=== PATIENT | female | born 1950 | race Caucasian/White ===

== ENCOUNTER 2020-04-20 00:43 | Outpatient (CLI) | payer MEDICARE, SELFPAY ==
[2020-04-20 19:34] LABS: SARS-CoV-2 RNA PCR Negative
== END 2020-04-20 00:44 | disposition home or self-care (01) ==
LOC: ANHCOVIDDT 00:43
PROVIDERS: PCP Internal Medicine; Visit Provider Internal Medicine Gastroenterology
DX: Z01.812 Encounter for preprocedural laboratory examination (principal); Z20.828 Contact with and (suspected) exposure to other viral communicable diseases
CPT/HCPCS: 87635; C9803; U0003

== ENCOUNTER 2020-04-22 02:30 | Day surgery (SDC) | payer MEDICARE, SELFPAY ==
[2020-04-13 10:27] VITALS: BMI 30.2
--- NOTE | 2020-04-20 14:28 | P.PNAN_ITS ---
Anes - Initial Pre Proc Eval Procedure: Operation Date: 04/22/20 08:30 Proposed Procedures p Screening Colonoscopy - Jeff Carey MD Date/Time: 04/20/20 14:28 Surgeon: Jeff Carey MD Pre Op Diagnosis: Hx Colon Polyps Patient Data Age: 70 Gender: F Height: 1.57 m Weight: 75 kg Allergies Allergy/AdvReac Type Severity Reaction Status Date / Time No Known Allergies Allergy Unknown Verified 04/22/20 07:44 Home Medications Medication Instructions Recorded Confirmed Type amlodipine 10 mg PO DAILY 04/13/20 04/13/20 History clonidine HCl 0.2 mg PO DAILY 04/13/20 04/13/20 History furosemide 20 mg PO DAILY 04/13/20 04/13/20 History hydralazine 25 mg PO DAILY 04/13/20 04/13/20 History losartan 100 mg PO DAILY 04/13/20 04/13/20 History metformin 500 mg PO BID 04/13/20 04/13/20 History omeprazole 20 mg PO DAILY 04/13/20 04/13/20 History Patient hx anesthesia problems: none Family hx anesthesia problems: none [facility] Past Medical History Medical History Diabetes type 2, controlled History of anal cancer chemo/radiation 2009 Hypertension Surgical History Surgical History (Updated 04/20/20 @ 14:28 by Artemio Varma DO) History of cholecystectomy Anes - Eval Final PreProcedure Day of Procedure 04/20/20 14:28 Patient weight: obese Heart: regular rate and rhythm Lungs: clear to auscultation and normal air movement Airway: Mallampati scale class II Neurological: alert and oriented Last oral intake: >/= 8 hours ASA classification: III Emergent: no Anesthetic plan: proceed Anesthesia type and monitoring: general GIVS and standard monitoring Informed Consent: The patient's anesthetic plan and its attendant risks and benefits were discussed with the patient/family/POA. Questions were solicited and answers provided to the satisfaction of the patient/family/POA.
[2020-04-22 07:45] VITALS: BP 137/47; PULSE 69; RESP 18; TEMP 36.3; O2SAT 98; BMI 29.5
--- NOTE | 2020-04-22 07:57 | PM.HPGS ---
History of Present Illness History of Present Illness Consent: Risks, benefits, and alternatives have been discussed and questions answered. Patient agrees to proceed with procedure. Chief complaint: Hx Colon Polyps Narrative: Jaida Silva is a 70 year old W female referred for colonoscopy secondary change in bowel pattern. Patient states she has had some persistent fecal incontinence periods she has had this in the past and she had a colonoscopy 20 years ago couple polyps were removed. . She was placed on Linzess which improved her symptoms. She has had no rectal bleeding. She has a history of what sounds like anal cancer was treated with chemo and radiation therapy. This was about 11 years ago. I suspect she may have had a colonoscopy at that time but she states that 1 was not done. No family history of colorectal cancer. [facility] Past Medical History Medical History Diabetes type 2, controlled History of anal cancer chemo/radiation 2009 Hypertension Surgical History Surgical History (Updated 04/20/20 @ 14:28 by Artemio Varma DO) History of cholecystectomy Meds Home Medications and Allergies Home Medications Medication Instructions Recorded Confirmed Type amlodipine 10 mg PO DAILY 04/13/20 04/13/20 History clonidine HCl 0.2 mg PO DAILY 04/13/20 04/13/20 History furosemide 20 mg PO DAILY 04/13/20 04/13/20 History hydralazine 25 mg PO DAILY 04/13/20 04/13/20 History losartan 100 mg PO DAILY 04/13/20 04/13/20 History metformin 500 mg PO BID 04/13/20 04/13/20 History omeprazole 20 mg PO DAILY 04/13/20 04/13/20 History Allergies Allergy/AdvReac Type Severity Reaction Status Date / Time No Known Allergies Allergy Unknown Verified 04/22/20 07:44 Exam Const: Orientation/consciousness: patient oriented x3 Resp: Auscultation: clear to auscultation bilaterally Cardio: Rate: regular rate Rhythm: regular rhythm Heart sounds: no murmurs GI: GI Palp: Yes Soft to palpation, No Tenderness to palpation present (GI), Yes No hepatosplenomegaly present and No Palpable mass present Auscultation: normal bowel sounds Neuro: General: patient oriented x3 and no focal motor deficits Extrem: General: no pedal edema Assessment and Plan Additional Plan For colonoscopy for evaluation of change in bowel pattern and history of colonic polyps
[2020-04-22 08:02] LABS: Glucose Point of Care 111 (65-105)
[2020-04-22] MEDS: LACTATED RINGERS 1,000 ML 150 ML IV CONT (08:04)
[2020-04-22] MEDS: SIMETHICONE ORAL SUSPENSION 20 MG/0.3 ML 30 ML BOTTLE 0.6 ML IRRIGATION (08:52)
[2020-04-22 08:53] VITALS: BP 122/44; PULSE 66; RESP 21; O2SAT 95
[2020-04-22 09:03] VITALS: BP 110/49; PULSE 68; RESP 18; O2SAT 98
[2020-04-22 09:13] VITALS: BP 128/89; PULSE 61; RESP 16; O2SAT 98
== END 2020-04-22 09:38 | disposition home or self-care (01) ==
PROVIDERS: PCP Internal Medicine; Visit Provider Internal Medicine Gastroenterology
PROC: 0DJD8ZZ Inspection of Lower Intestinal Tract, Via Natural or Artificial Opening Endoscopic (ICD-10-PCS; CPT 45378; principal; 2020-04-22 08:30)
DX: R19.4 Change in bowel habit (principal); K57.30 Diverticulosis of large intestine without perforation or abscess without bleeding; E11.9 Type 2 diabetes mellitus without complications; I10 Essential (primary) hypertension; Z86.010 Personal history of colon polyps; Z85.048 Personal history of other malignant neoplasm of rectum, rectosigmoid junction, and anus; Z79.84 Long term (current) use of oral hypoglycemic drugs; Z79.899 Other long term (current) drug therapy
CPT/HCPCS: 45378; J2704; J7120

== ENCOUNTER 2024-01-09 13:15 | Outpatient (RCR) | payer MEDICARE, SELFPAY ==
[2024-01-09 13:28] VITALS: BMI 32.1
== END 2024-03-25 09:36 | disposition home or self-care (01) ==
LOC: ANHDMC 13:15
PROVIDERS: PCP Internal Medicine; Visit Provider Internal Medicine
DX: E11.9 Type 2 diabetes mellitus without complications (principal); Z71.3 Dietary counseling and surveillance
CPT/HCPCS: 97802